=== PATIENT | female | born 1995 | race Caucasian/White ===

== ENCOUNTER 2018-01-18 15:51 | Emergency (ER) | payer MEDICAID ==
[~2018-01-18] VITALS: Ht 170.2 cm; Wt 83.5 kg
[2018-01-18 15:54] VITALS: BP 105/53
--- NOTE | 2018-01-18 16:01 | NUR ---
PT AMBULATED TO ER BED 04
--- NOTE | 2018-01-18 16:04 | NUR ---
REPORT GIVEN TO JESSIE NEWMAN
--- NOTE | 2018-01-18 16:05 | NUR ---
A 22 YO F BIB SELF W/ C/O PIMPLE/BLISTER/ABSCESS TO FOREHEAD X 3 DAYS. PT STATES , " I THOUGHT IT WAS A PIMPLE BUT IT HAS SINCE WORSENED. PT REPORTS BLEEDING AND PUS NOTED. PT REPORTS PRESSURE AND HEADACHES TO THE SITE, REPORTS IT FEELS "BRUISED". NO NOTED BRUISING. IBUPROFEN TAKEN FOR THE PAIN, MINIMALLY EFFECTIVE. PT. DENIES FEVERS, DENIES DIZZYNESS OR BLURRY VISION. ER MD NOTIFIED. WILL CONTINUE TO MONITOR.
[2018-01-18] MEDS ORDERED: LIDOCAINE 2% 1000 MG/50 ML VIAL INJ ONE (16:10)
[2018-01-18] MEDS ORDERED: CLINDAMYCIN 150 MG CAP PO ONE (16:40)
[2018-01-18] MEDS ORDERED: IBUPROFEN 800 MG TAB PO ONE (16:40)
[2018-01-18 16:56] VITALS: BP 106/56
--- NOTE | 2018-01-18 16:56 | NUR ---
Patient discharged with v/s stable. Written and verbal after care instructions given and explained. Patient alert, oriented and verbalized understanding of instructions. Ambulatory with steady gait. All questions addressed prior to discharge. ID band removed. Patient advised to follow up with PMD. Rx of IBUPROFEN 800MG AND CLINDAMYCIN given. Patient educated on indication of medication including possible reaction and side effects. Opportunity to ask questions provided and answered.
== END 2018-01-18 16:56 | disposition home or self-care (01) ==
LOC: MED 15:51
DX: L02.01 Cutaneous abscess of face (principal)
CPT/HCPCS: 10060; 99283; J2001

== ENCOUNTER 2018-04-02 19:22 | Emergency (ER) | payer MEDICAID ==
[~2018-04-02] VITALS: Ht 170.2 cm; Wt 83.5 kg
[2018-04-02 19:31] VITALS: BP 108/63
[2018-04-02 22:22] VITALS: BP 118/79
== END 2018-04-02 22:23 | disposition home or self-care (01) ==
LOC: MED 19:22
DX: R59.0 Localized enlarged lymph nodes (principal); F17.200 Nicotine dependence, unspecified, uncomplicated
CPT/HCPCS: 99283

== ENCOUNTER 2019-08-23 10:02 | Inpatient (IN) | payer MEDICAID ==
[~2019-08-23] VITALS: Ht 167.6 cm; Wt 104.3 kg
[2019-08-23] MEDS ORDERED: LACTATED RINGERS 1,000 ML IV SCH (11:17)
[2019-08-23] MEDS ORDERED: CARBOPROST 250 MCG/ML AMP IM PRN (11:20)
[2019-08-23] MEDS ORDERED: PROMETHAZINE 25 MG/ML VIAL IVP PRN (11:20)
[2019-08-23] MEDS ORDERED: METHYLERGONOVINE 0.2 MG/ML AMP IM PRN ×2 (11:20→22:25)
[2019-08-23] MEDS: MISOPROSTOL 25 MCG TAB VG SCH ×2 (11:36→16:17)
[2019-08-23] MEDS: ALBUTEROL SULFATE/IPRATROPIU 3 ML SOL IH PRN (12:17)
[2019-08-23 12:20] VITALS: BP 127/78
[2019-08-23 12:28] LABS: APPEARANCE,URINE HAZY (CLEAR); BILIRUBIN,URINE NEGATIVE (NEGATIVE); BLOOD, URINE NEGATIVE (NEGATIVE); COLOR,URINE YELLOW (YELLOW); LEUKOCYTE ESTERASE ,URINE NEGATIVE (NEGATIVE); NITRITE, URINE NEGATIVE (NEGATIVE); PH,URINE 7.5 (5.0-9.0); UGLUCOSE NEGATIVE (NEGATIVE)
[2019-08-23 12:53] LABS: BASOPHILS % (AUTO) 0.2 % (0.0-2.0); EOSINOPHILS # (AUTO) 0.2 K/uL (0-0.4); EOSINOPHILS % (AUTO) 2.7 % (0.0-4.0); HEMATOCRIT 37.1 % (36-48); HEMOGLOBIN 12.4 g/dL (12.0-16.0); LYMPHOCYTES # (AUTO) 1.8 K/uL (2.5-16.5); LYMPHOCYTES % (AUTO) 21.8 % (20.5-51.1); MEAN CORPUSCULAR HEMOGLOBIN 30 pg (27-31); MEAN CORPUSCULAR HGB CONC 34 g/dL (33-37); MEAN CORPUSCULAR VOLUME 90.3 fL (80-94); MONOCYTES # (AUTO) 0.6 K/uL (0.8-1.0); NEUTROPHILS # (AUTO) 5.6 K/uL (1.8-7.7); NEUTROPHILS % (AUTO) 68.3 % (42.2-75.2); PLATELET COUNT (AUTO) 194 K/uL (140-450); RED BLOOD CELL COUNT(AUTO) 4.11 MIL/uL (4.20-5.40); RED CELL DISTRIBUTION WIDTH 14.9 % (11.6-13.7); WHITE BLOOD COUNT (AUTO) 8.2 K/uL (4.8-10.8)
[2019-08-23] MEDS ORDERED: BUPIVACAINE 0.125%/NS PREMIX 250 ML ONE (19:51)
[2019-08-23] MEDS ORDERED: OXYTOCIN 20 UNITS/LR PREMIX 1,000 ML IV ONE (21:56)
[2019-08-23] MEDS ORDERED: MEASLES, MUMPS, AND RUBELLA 1 VIAL SQVAC PRN (22:25)
[2019-08-23] MEDS ORDERED: BENZOCAINE/MENTHOL 20%-0.5% 60 GM CAN TP PRN (22:25)
[2019-08-23] MEDS ORDERED: OXYTOCIN 10 UNITS/ML VIAL IM PRN (22:25)
[2019-08-23] MEDS ORDERED: TEMAZEPAM 15 MG CAP PO PRN (22:25)
[2019-08-23] MEDS ORDERED: HYDROcodone/APAP 5/325 MG 1 TAB TAB PO PRN (22:25)
[2019-08-23] MEDS ORDERED: SODIUM PHOSPHATE 118 ML ENEM RC PRN (22:25)
[2019-08-23] MEDS ORDERED: oxyCODONE/APAP 5/325 MG 1 TAB TAB PO PRN (22:25)
[2019-08-23] MEDS ORDERED: DOCUSATE SOD/SENNA 50/8.6 MG 1 TAB PO SCH (23:14)
[2019-08-24] MEDS: IBUPROFEN 800 MG TAB PO PRN ×2 (01:21→15:28)
[2019-08-24 05:20] LABS: HEMATOCRIT 37.1 % (36-48); HEMOGLOBIN 12.4 g/dL (12.0-16.0)
[2019-08-24] MEDS: ALBUTEROL SULFATE/IPRATROPIU 3 ML SOL IH PRN (07:16)
--- NOTE | 2019-08-24 08:31 | NUR ---
PATIENT HAS BEEN SCREENED AND CATEGORIZED LOW NUTRITION RISK. PATIENT WILL BE SEEN WITHIN 7 DAYS OF ADMISSION. 08/29/[address]
[2019-08-25] MEDS ORDERED: INFLUENZA VACCINE QUAD 0.5 ML SYR IMVAC PRN (00:30)
[2019-08-25] MEDS: ALBUTEROL SULFATE/IPRATROPIU 3 ML SOL IH PRN (09:41)
[2019-08-25] MEDS ORDERED: FERR325E14 PO (10:13)
[2019-08-25] MEDS ORDERED: IBUP-2213 PO (10:14)
== END 2019-08-25 18:51 | disposition home or self-care (01) | DRG 560 ==
LOC: MFCC 10:02 → OBSVTOIN 11:24 → MFCC 08-24 21:21
PROVIDERS: ADMIT Obstetrics & Gynecology; ATTEND Obstetrics & Gynecology
PROC: 10E0XZZ Delivery of Products of Conception, External Approach (ICD-10-PCS; principal; 2019-08-23)
PROC: 10907ZC Drainage of Amniotic Fluid, Therapeutic from Products of Conception, Via Natural or Artificial Opening (ICD-10-PCS; 2019-08-23)
PROC: 00HU33Z Insertion of Infusion Device into Spinal Canal, Percutaneous Approach (ICD-10-PCS; 2019-08-23)
PROC: 3E0R3BZ Introduction of Anesthetic Agent into Spinal Canal, Percutaneous Approach (ICD-10-PCS; 2019-08-23)
PROC: 3E02340 Introduction of Influenza Vaccine into Muscle, Percutaneous Approach (ICD-10-PCS; 2019-08-25)
DX: O36.8130 Decreased fetal movements, third trimester, not applicable or unspecified (principal); O48.0 Post-term pregnancy; Z37.0 Single live birth; Z3A.40 40 weeks gestation of pregnancy; O62.3 Precipitate labor; Z23 Encounter for immunization
CPT/HCPCS: 36415; 51702; 59200; 59409; 81003; 85018; 85025; 86592; 86886; 86900; 86901; 90715; 94640; G0378; J2550; J2590; J3490; J7120

== ENCOUNTER 2021-09-22 18:30 | Emergency (ER) | payer MEDICAID ==
[~2021-09-22] VITALS: Ht 170.2 cm; Wt 73.9 kg
[~2021-09-22 18:30] MED LIST: FERR325E14 PO; IBUP-2213 PO
--- NOTE | 2021-09-22 18:50 | NUR ---
TO ER BED 8
[2021-09-22 18:52] VITALS: BP 144/72
[2021-09-22] MEDS ORDERED: LIDOCAINE/EPI 1% 1:100000 20 ML VIAL INJ ONE ×2 (18:55)
--- NOTE | 2021-09-22 18:58 | NUR ---
25 years old female presents to er with left ear pain for 4 days. tender to touch, no swelling redness.
--- NOTE | 2021-09-22 19:15 | NUR ---
Dr. Gonsalves examining patient.
[2021-09-22] MEDS ORDERED: BACI1PAC6 TP (19:19)
--- NOTE | 2021-09-22 19:49 | NUR ---
PT LEFT WITH SCRIPT IN HAND, EXPLAINED TO PT DISCHARGE INSTRUCTIONS, SHE VERBELIZED UNDERSTANDING.
== END 2021-09-22 19:49 | disposition home or self-care (01) ==
LOC: MED 18:30
DX: T16.2XXA Foreign body in left ear, initial encounter (principal); Z79.2 Long term (current) use of antibiotics; Z79.1 Long term (current) use of non-steroidal anti-inflammatories (NSAID); Z79.899 Other long term (current) drug therapy
CPT/HCPCS: 69200; 99284; J2001

== ENCOUNTER 2022-02-16 20:49 | Emergency (ER) | payer MEDICAID ==
[~2022-02-16] VITALS: Ht 170.2 cm; Wt 88.5 kg
[~2022-02-16 20:49] MED LIST changes: +BACI1PAC6 TP
[2022-02-16 20:54] VITALS: BP 140/97
[2022-02-16] MEDS ORDERED: LIDOCAINE/EPI MPF 1%1:200000 30 ML VIAL INJ ONE (22:33)
[2022-02-16] MEDS: LIDOCAINE/EPI MPF 1%1:200000 30 ML VIAL INJ ONE (22:37)
[2022-02-16] MEDS: BACITRACIN OINT 500 UNITS/GM PKT TP ONE (23:23)
[2022-02-17] MEDS ORDERED: NAPR-54 PO (01:06)
[2022-02-17 01:09] VITALS: BP 140/97
== END 2022-02-17 01:10 | disposition home or self-care (01) ==
LOC: MED 20:49
DX: S01.81XA Laceration without foreign body of other part of head, initial encounter (principal); R11.0 Nausea; Z79.899 Other long term (current) drug therapy; W19.XXXA Unspecified fall, initial encounter; Y93.89 Activity, other specified; Y92.89 Other specified places as the place of occurrence of the external cause; Y99.8 Other external cause status
CPT/HCPCS: 12011; 70450; 99284; J2001

== ENCOUNTER 2022-02-23 14:46 | Emergency (ER) | payer MEDICAID ==
[~2022-02-23] VITALS: Ht 170.2 cm; Wt 86.2 kg
[~2022-02-23 14:46] MED LIST changes: +NAPR-54 PO
[2022-02-23 14:48] VITALS: BP 130/57
--- NOTE | 2022-02-23 14:55 | NUR ---
PT AMB TO BED 11.
--- NOTE | 2022-02-23 15:19 | NUR ---
Patient discharged with v/s stable. Written and verbal after care instructions given and explained. Patient verbalized understanding. Ambulatory with steady gait. All questions addressed prior to discharge. Advised to follow up with PMD.
== END 2022-02-23 15:18 | disposition home or self-care (01) ==
LOC: MED 14:46
DX: S01.112D Laceration without foreign body of left eyelid and periocular area, subsequent encounter (principal); Z79.899 Other long term (current) drug therapy; X58.XXXD Exposure to other specified factors, subsequent encounter
CPT/HCPCS: 99281

== ENCOUNTER 2022-12-05 14:30 | Emergency (ER) | payer MEDICAID ==
[~2022-12-05] VITALS: Ht 170.2 cm; Wt 90.7 kg
[~2022-12-05 14:30] MED LIST changes: +BACI-418 TP; -BACI1PAC6 TP
[2022-12-05 14:38] VITALS: BP 146/79; PULSE 102; RESP 16; TEMP 97.9; O2SAT 98
[2022-12-05] MEDS ORDERED: MUPI2CRE22 TP (14:53)
[2022-12-05] MEDS ORDERED: CLIN300C61 PO (14:53)
--- NOTE | 2022-12-05 15:19 | NUR ---
Patient discharged with v/s stable. Written and verbal after care instructions FOR [facility] given and explained. Patient alert, oriented and verbalized understanding of instructions. Ambulatory with steady gait. All questions addressed prior to discharge. ID band removed. Patient advised to follow up with PMD. Rx of MUPIROCIN AND CLINDAMYCIN given.Opportunity to ask questions provided and answered.
[2022-12-05 15:55] VITALS: O2SAT 98
--- NOTE | 2022-12-05 15:55 | NUR ---
The patient's care was reviewed and supervised by [facility], RN.
[2022-12-06] MEDS ORDERED: MUPI2CRE22 TP (07:47)
[2022-12-06] MEDS ORDERED: CLIN300C2 PO (07:47)
== END 2022-12-05 15:19 | disposition home or self-care (01) ==
LOC: MED 14:30
DX: L01.00 Impetigo, unspecified (principal); Z79.899 Other long term (current) drug therapy
CPT/HCPCS: 99283

== ENCOUNTER 2024-01-01 09:04 | Emergency (ER) | payer MEDICAID ==
[~2024-01-01] VITALS: Ht 170.2 cm; Wt 89.1 kg
[~2024-01-01 09:04] MED LIST changes: +CLIN300C2 PO; +CLIN300C61 PO; +MUPI2CRE22 TP; +NAPR-337 PO; -NAPR-54 PO
[2024-01-01 09:14] VITALS: BP 128/70; PULSE 66; RESP 17; TEMP 98.7; O2SAT 99
[2024-01-01] MEDS ORDERED: OFLO5SOL RIGHT EYE (10:03)
[2024-01-01] MEDS: FLUORESCEIN OPTH STRIP 1 MG OP ONE (10:11)
[2024-01-01 10:14] VITALS: BP 128/70; PULSE 66; RESP 17; TEMP 98.7; O2SAT 99
== END 2024-01-01 10:15 | disposition home or self-care (01) ==
LOC: MED 09:04
DX: H18.821 Corneal disorder due to contact lens, right eye (principal); Z79.1 Long term (current) use of non-steroidal anti-inflammatories (NSAID); Z79.2 Long term (current) use of antibiotics; Z79.899 Other long term (current) drug therapy
CPT/HCPCS: 99283